=== PATIENT | female | born 1975 | race Caucasian/White ===

== ENCOUNTER → 2017-11-22 | Outpatient (CLI) | payer OTHER | LOC: CIMAGING 07:26 | PROVIDERS: ATTEND Internal Medicine Gastroenterology | DX: D18.03 Hemangioma of intra-abdominal structures (principal) | CPT/HCPCS: 76705-PO ==

== ENCOUNTER → 2018-03-03 | Outpatient (CLI) | payer OTHER ==
[~2018-03-03] MED LIST: GADOBUTROL 10 ML VIAL IVP ONE
== END ==
LOC: FIMAGING 07:15
PROVIDERS: ATTEND Psychiatry & Neurology Neurology
DX: G35 Multiple sclerosis (principal); R93.8 Abnormal findings on diagnostic imaging of other specified body structures
CPT/HCPCS: A9585